=== PATIENT | female | born 1955 | race Caucasian/White ===

== ENCOUNTER → 2016-04-27 | Outpatient (CLI) | payer OTHER ==
--- NOTE | 2016-04-27 17:03 | MA ---
Bilateral Digital Screening Mammography Clinical History: 60-year-old female with no family history of breast cancer, who presents for [facility] annual mammographic screening. Technique: Digital CC and MLO views of each breast are compared with previous studies dated April 15, 2015, January 29, 2014, January 16, 2013, October 12, 2011, September 29, 2010, and September 02, 2009. Additi onally, the exam is CAD checked. Breast Density: Type B. CAD Evaluation: Reviewed. Findings: There is no focal neodensity or interim architectural change. There are no suspicious clu stered microcalcifications. Impression: Negative mammography. BI-RADS Category 1. Recommendation: Routine annual mammographic screening. [facility] will send a result letter to the patient. Negative mammography should not preclude additional work up of a clinically suspicious finding. The patient's information is entered into a reminder system with a target due date for her next mammo gram. E:adriana
== END ==
LOC: FIMAGING 10:28
DX: Z12.31 Encounter for screening mammogram for malignant neoplasm of breast (principal)
CPT/HCPCS: G0202

== ENCOUNTER → 2017-05-10 | Outpatient (CLI) | payer OTHER | LOC: FIMAGING 10:54 | PROVIDERS: ATTEND Family Medicine | DX: Z12.31 Encounter for screening mammogram for malignant neoplasm of breast (principal) ==

== ENCOUNTER → 2018-05-20 | Outpatient (CLI) | payer OTHER | LOC: FIMAGING 11:49 | PROVIDERS: ATTEND Family Medicine | DX: Z12.31 Encounter for screening mammogram for malignant neoplasm of breast (principal) ==